=== PATIENT | female | born 1990 | race Hispanic/Latino ===

== ENCOUNTER 2021-09-08 14:02 | Outpatient (CLI) | payer OTHER | END 2021-09-08 14:03 | disposition home or self-care (01) | LOC: BICULT 14:02 | PROVIDERS: ATTEND Family Medicine | DX: E04.9 Nontoxic goiter, unspecified (principal); E04.1 Nontoxic single thyroid nodule | CPT/HCPCS: 76536 ==

== ENCOUNTER 2022-03-09 14:41 | Outpatient (CLI) | payer OTHER | END 2022-03-09 14:42 | disposition home or self-care (01) | LOC: ULT 14:41 | PROVIDERS: ATTEND Internal Medicine Endocrinology, Diabetes & Metabolism | DX: R22.0 Localized swelling, mass and lump, head (principal); E04.1 Nontoxic single thyroid nodule | CPT/HCPCS: 76536 ==